=== PATIENT | male | born 1975 | race Caucasian/White ===

== ENCOUNTER 2017-12-05 18:55 | Emergency (ER) | payer SELFPAY ==
[~2017-12-05] VITALS: Ht 188 cm; Wt 109.5 kg
[2017-12-05 18:59] VITALS: BP 157/89
== END 2017-12-05 19:09 | disposition left against medical advice (07) ==
LOC: ED 19:03
DX: R50.9 Fever, unspecified (principal); R05 Cough; Z53.21 Procedure and treatment not carried out due to patient leaving prior to being seen by health care provider